=== PATIENT | female | born 1965 | race Caucasian/White ===

== ENCOUNTER 2020-04-15 11:26 | Outpatient (CLI) | payer OTHER ==
[~2020-04-15 11:26] MED LIST: NO HOME MEDS; OCRE300V IV; VALA500T4 PO
[2020-04-15] MEDS ORDERED: OMNIPAQUE 350 MG/ML, 100ML BOTTLE ONE (13:30)
== END 2020-04-15 23:59 | disposition home or self-care (01) ==
LOC: RAD 11:26
PROVIDERS: ATTEND Family Medicine
DX: M50.33 Other cervical disc degeneration, cervicothoracic region (principal); G35 Multiple sclerosis
CPT/HCPCS: 70496; 70498; Q9967